=== PATIENT | male | born 1950 | race Caucasian/White ===

== ENCOUNTER 2017-04-22 17:32 | Inpatient (IN) | payer MEDICARE ==
[~2017-04-22] VITALS: Ht 182.9 cm; Wt 108.9 kg
[2017-04-22 18:14] VITALS: BP 151/76; PULSE 122; RESP 16; TEMP 102; O2SAT 96
[2017-04-22] MEDS ORDERED: SODIUM CHLOR 0.9% 1000 ML INJ 300 ML IV ONE (18:46)
[2017-04-22] MEDS ORDERED: SODIUM CHLOR 0.9% 1000 ML INJ 1,000 ML IV ONE ×3 (18:46)
[2017-04-22 19:00] VITALS: RESP 18; O2SAT 97
[2017-04-22] MEDS ORDERED: ACETAMINOPHEN 325 MG TAB PO ONE (19:00)
[2017-04-22] MEDS ORDERED: ASPI81CH CHEW (19:12)
[2017-04-22] MEDS ORDERED: BENA20TA PO (19:12)
[2017-04-22] MEDS ORDERED: LIPI20TA PO (19:12)
--- NOTE | 2017-04-22 19:13 | PD ---
HPI Chief Complaint: Fever Time Seen by Provider: 19:03 Travel History International Travel<30 days: No Contact w/Intl Traveler<30days: No Traveled to known affect area: No History of Present Illness HPI 67-year-old male here for evaluation of fevers, chills, generalized malaise, weakness, headache, and dysuria. Symptoms started 2 days ago with dysuria and suprapubic pressure. He was seen by an urgent care facility yesterday and was diagnosed with a UTI and started on Bactrim. His suprapubic and lower abdominal pressure has resolved. At one episode of loose bowel movements 2 days ago. He feels nauseous but has not vomited. He is describing head pressure that lasted for about 16 hours yesterday and finally resolved after taking Motrin 800 mg every 6 hours, however has returned today. No neck stiffness. He has had a nonproductive cough. He is sexually active with one partner for over 20 years. [facility] Social History Tobacco Use: No Allergies-Medications (Allergen,Severity, Reaction): Coded Allergies: No Known Allergies (Unverified , 04/22/17) Reported Meds & Prescriptions Reported Meds & Active Scripts Active Reported Aspirin 81 Mg Chew 81 Mg CHEW DAILY Lipitor (Atorvastatin Calcium) 20 Mg Tab 20 Mg PO HS Benazepril (Benazepril HCl) 20 Mg Tab 20 Mg PO BID Review of Systems Except as stated in HPI: all other systems reviewed are Neg Physical Exam Narrative GENERAL: Well-developed, well-nourished, comfortable, no apparent distress. SKIN: Focused skin assessment warm/dry. No petechiae. No rash. HEAD: Atraumatic. Normocephalic. EYES: Pupils equal and round. No scleral icterus. No injection or drainage. ENT: No nasal bleeding or discharge. Mucous membranes pink and moist. Normal pharynx. Bilateral tympanic membrane and external auditory canals are normal. NECK: Trachea midline. No JVD. No nuchal rigidity. CARDIOVASCULAR: Tachycardic, rate 115, regular. No murmur appreciated. RESPIRATORY: No accessory muscle use. Clear to auscultation. Breath sounds equal bilaterally. GASTROINTESTINAL: Abdomen soft, non-tender, nondistended. MUSCULOSKELETAL: No obvious deformities. No clubbing. No cyanosis. No edema. NEUROLOGICAL: Awake and alert. No obvious cranial nerve deficits. Motor grossly within normal limits. Normal speech. PSYCHIATRIC: Appropriate mood and affect; insight and judgment normal. Data Data Last Documented VS Vital Signs Date Time Temp Pulse Resp B/P (MAP) Pulse Ox O2 Delivery O2 Flow Rate FiO2 04/22/17 21:43 100 16 124/68 (86) 97 Room Air 04/22/17 18:14 102.0 Orders Orders Complete Blood Count With Diff (04/22/17 18:46) Comprehensive Metabolic Panel (04/22/17 18:46) Lactic Acid Sepsis Protocol (04/22/17 18:46) Urinalysis - C+S If Indicated (04/22/17 18:46) Influenzae A/B Antigen (04/22/17 18:46) Blood Culture (04/22/17 18:46) Chest, Single Ap (04/22/17 18:46) Ecg Monitoring (04/22/17 18:46) Iv Access Insert/Monitor (04/22/17 18:46) Oximetry (04/22/17 18:46) Acetaminophen (Tylenol) (04/22/17 19:00) Sodium Chlor 0.9% 1000 Ml Inj (Ns 1000 M (04/22/17 18:46) Sodium Chlor 0.9% 1000 Ml Inj (Ns 1000 M (04/22/17 18:46) Sodium Chlor 0.9% 1000 Ml Inj (Ns 1000 M (04/22/17 18:46) Sodium Chlor 0.9% 1000 Ml Inj (Ns 1000 M (04/22/17 18:46) Urine Culture (04/22/17 19:20) Ct Abd/Pel W Iv Contrast(Rout) (04/22/17 20:46) Ketorolac Inj (Toradol Inj) (04/22/17 21:00) Metoclopramide Inj (Reglan Inj) (04/22/17 21:00) Ceftriaxone Inj (Rocephin Inj) (04/22/17 21:00) Iohexol 350 Inj (Omnipaque 350 Inj) (04/22/17 21:33) Diphenhydramine Inj (Benadryl Inj) (04/22/17 22:00) Vital Signs (Adult) Q4H (04/22/17 22:14) Activity Oob With Assistance (04/22/17 22:14) [employer] Concierge / Telemetry .CONTINUOUS (04/22/17 22:14) Diet Heart Healthy (04/23/17 Breakfast) Sodium Chloride 0.9% Flush (Ns Flush) (04/22/17 22:15) Sodium Chloride 0.9% Flush (Ns Flush) (04/23/17 09:00) Basic Metabolic Panel (Bmp) (04/23/17 06:00) Complete Blood Count With Diff (04/23/17 06:00) Case Management Consult (04/22/17 22:14) Naloxone Inj (Narcan Inj) (04/22/17 22:15) Admit To Inpatient (04/22/17 ) Inpatient Certification (04/22/17 ) Ceftriaxone Inj (Rocephin Inj) (04/23/17 09:00) Admit Order (Ed Use Only) (04/22/17 22:16) Labs Laboratory Tests Test 04/22/17 19:20 04/22/17 19:30 Urine Color SOLITARIO Urine Turbidity SLIGHT Urine pH 5.5 Urine Specific [place] 1.016 Urine Protein 100 mg/dL Urine Glucose (UA) NEG mg/dL Urine Ketones NEG mg/dL Urine Occult Blood MOD Urine Nitrite POS Urine Bilirubin NEG Urine Leukocyte Esterase SMALL Urine RBC 4-9 /hpf Urine WBC 50-99 /hpf Urine WBC Clumps FEW Urine Squamous Epithelial Cells 0-5 /hpf Urine Bacteria OCC /hpf Urine Mucus MOD /lpf Microscopic Urinalysis Comment CULTURE INDICATED White Blood Count 6.8 TH/MM3 Red Blood Count 4.91 MIL/MM3 Hemoglobin 15.1 GM/DL Hematocrit 44.6 % Mean Corpuscular Volume 90.9 FL Mean Corpuscular Hemoglobin 30.7 PG Mean Corpuscular Hemoglobin Concent 33.8 % Red Cell Distribution Width 13.0 % Platelet Count 162 TH/MM3 Mean Platelet Volume 8.5 FL Neutrophils (%) (Auto) 84.0 % Lymphocytes (%) (Auto) 7.3 % Monocytes (%) (Auto) 8.0 % Eosinophils (%) (Auto) 0.2 % Basophils (%) (Auto) 0.5 % Neutrophils # (Auto) 5.8 TH/MM3 Lymphocytes # (Auto) 0.5 TH/MM3 Monocytes # (Auto) 0.5 TH/MM3 Eosinophils # (Auto) 0.0 TH/MM3 Basophils # (Auto) 0.0 TH/MM3 CBC Comment DIFF FINAL Differential Comment Blood Urea Nitrogen 11 MG/DL Creatinine 1.10 MG/DL Random Glucose 132 MG/DL Total Protein 7.8 GM/DL Albumin 3.3 GM/DL Calcium Level 9.0 MG/DL Alkaline Phosphatase 86 U/L Aspartate Amino Transf (AST/SGOT) 26 U/L Alanine Aminotransferase (ALT/SGPT) 37 U/L Total Bilirubin 0.8 MG/DL Sodium Level 134 MEQ/L Potassium Level 3.9 MEQ/L Chloride Level 100 MEQ/L Carbon Dioxide Level 26.1 MEQ/L Anion Gap 8 MEQ/L Estimat Glomerular Filtration Rate 66 ML/MIN Lactic Acid Level 1.5 mmol/L [facility] Medical Decision Making Medical Screen Exam Complete: Yes Emergency Medical Condition: Yes Differential Diagnosis Sepsis, UTI, prostatitis, influenza/viral illness, sinusitis, pneumonia, colitis , diverticulitis Narrative Course Initial vital signs show heart rate 122, blood pressure 151/76, pulse ox 96% on room air, oral temp of 32F. CBC: WBC 6.8, hemoglobin 15.1, hematocrit 44.6, platelets 162, neutrophils 84%. CMP is essentially unremarkable. Lactic acid is 1.5. Influenza is negative. UA: Solitario, 100 protein, moderate occult blood, positive nitrites, small leukocyte esterase, 4-9 RBCs, 50-99 wbc's, few wbc clumps, occasional bacteria, moderate mucus. Patient is sexually active with only one partner for the last 20 years. Prostate exam was performed and reveals a boggy/enlarged prostate that is mildly tender. CT abdomen pelvis: Mildly enlarged prostate. No acute findings. Patient likely has prostatitis. He was given 3 L of normal saline IV, oral Tylenol, and his heart rate still remains elevated at around 105 bpm, sinus tachycardia. He still feels very weak and is still complaining of pressure- like headache. He was given a dose of IV Toradol and IV Reglan for this, and after the Reglan he began to feel somewhat jittery, so he was given a dose of Benadryl. There is no nuchal rigidity on exam. I do not believe his headache is from meningitis or encephalitis. Patient meets SIRS criteria. He was given a dose of IV Rocephin. He overall looks ill, and I would like to admit him to the hospital for overnight observation for further antibiotic and fluid hydration therapy. Case discussed with hospitalist Dr. Chun who will admit the patient to her service. Diagnosis Primary Impression: Prostatitis Qualified Codes: N41.0 - Acute prostatitis Additional Impression: SIRS (systemic inflammatory response syndrome) Admitting Information Admitting Physician Requests: Steven Levy MD Apr 22, 2017 19:13
--- NOTE | 2017-04-22 19:18 | RADRPT ---
EXAM DATE/TIME: 04/22/2017 18:54 [facility] COMPARISON: No previous studies available for comparison. INDICATIONS : Fever, cough. MEDICAL HISTORY : None. SURGICAL HISTORY : None. ENCOUNTER: Initial ACUITY: 3 days PAIN SCORE: 0/10 LOCATION: Bilateral chest FINDINGS: A single view of the chest demonstrates the lungs to be symmetrically aerated without evidence of mas s, infiltrate or effusion. The cardiomediastinal contours are unremarkable. Osseous structures are intact. CONCLUSION: No acute disease. Alex Renteria MD on April 22, 2017 at 19:16 Board Certified Radiologist. This report was verified electronically.
[2017-04-22 19:50] LABS: AUTOMATED NEUTROPHIL # 5.8 TH/MM3 (1.8-7.7); BASOPHIL % 0.5 % (0.0-2.0); EOSINOPHIL % 0.2 % (0.0-4.0); HEMATOCRIT 44.6 % (39.0-51.0); HEMOGLOBIN 15.1 GM/DL (13.0-17.0); LYMPH % 7.3 % (9.0-44.0); LYMPHOCYTE # 0.5 TH/MM3 (1.0-4.8); MEAN CELL VOLUME 90.9 FL (80.0-100.0); MEAN CORPUSCULAR HEMOGLOBIN 30.7 PG (27.0-34.0); MEAN CORPUSCULAR HGB CONC 33.8 % (32.0-36.0); MEAN PLATELET VOLUME 8.5 FL (7.0-11.0); MONOCYTE # 0.5 TH/MM3 (0-0.9); PLATELET COUNT 162 TH/MM3 (150-450); RED BLOOD COUNT 4.91 MIL/MM3 (4.50-5.90); WHITE BLOOD COUNT 6.8 TH/MM3 (4.0-11.0)
[2017-04-22 19:52] LABS: BILIRUBIN, URINE NEG (NEG); BLOOD, URINE MOD (NEG); GLUCOSE,URINE NEG (NEG); KETONE, URINE NEG (NEG); NITRITE,URINE POS (NEG); PH, URINE 5.5 (5.0-8.5); URINE LEUKOCYTE ESTERASE SMALL (NEG)
[2017-04-22 19:57] VITALS: BP 147/85; PULSE 104; RESP 16; O2SAT 97
[2017-04-22 19:58] LABS: CHLORIDE 100 MEQ/L (98-107); SODIUM (NA) 134 MEQ/L (136-145)
[2017-04-22 20:01] LABS: ALBUMIN 3.3 GM/DL (3.4-5.0); BICARBONATE 26.1 MEQ/L (21.0-32.0); BLOOD UREA NITROGEN 11 MG/DL (7-18); GLUCOSE,RANDOM 132 MG/DL (74-106)
[2017-04-22 20:04] LABS: ALT (GPT) 37 U/L (12-78)
[2017-04-22 20:05] LABS: AST (GOT) 26 U/L (15-37); GLOMERULAR FILTRATION RATE 66 ML/MIN (>89)
[2017-04-22 20:06] LABS: TOTAL BILIRUBIN ADULT 0.8 MG/DL (0.2-1.0); TOTAL PROTEIN 7.8 GM/DL (6.4-8.2)
[2017-04-22 20:07] LABS: ALKALINE PHOSPHATASE 86 U/L (45-117)
[2017-04-22 20:14] LABS: URINE COLOR AMBER (YELLW/STRAW)
[2017-04-22 20:15] LABS: MUCUS URINE MOD /lpf (OCC); SQUAMOUS EPITHELIAL CELL URINE 0-5 /hpf (0-5); WHITE BLOOD CELL CLUMPS FEW
[2017-04-22 20:16] LABS: BACTERIA, URINE OCC /hpf
[2017-04-22] MEDS ORDERED: cefTRIAXone INJ 1,000 MG in SODIUM CHLORIDE 0.9% INJ 100 ML IV ONE (21:00)
[2017-04-22] MEDS ORDERED: METOCLOPRAMIDE HCL 10 MG/2 ML VIAL IV PUSH ONE (21:00)
[2017-04-22] MEDS ORDERED: KETOROLAC TROMETHAMINE 30 MG/ML (IVP) VIAL IV PUSH ONE (21:00)
[2017-04-22] MEDS ORDERED: IOHEXOL 350 MG/ML 10 ML VIAL (for RAD DIAG) IVCONTRAST ONE (21:33)
[2017-04-22 21:43] VITALS: BP 124/68; PULSE 100; RESP 16; O2SAT 97
--- NOTE | 2017-04-22 21:50 | RADRPT ---
EXAM DATE/TIME: 04/22/2017 21:09 [facility] COMPARISON: No previous studies available for comparison. INDICATIONS : Suprapubic pain. IV CONTRAST: 100 cc Omnipaque 350 (iohexol) IV ORAL CONTRAST: No oral contrast ingested. RADIATION DOSE: 21.39 CTDIvol (mGy) MEDICAL HISTORY : Hypertension. SURGICAL HISTORY : Appendectomy. ENCOUNTER: Initial ACUITY: 2 days PAIN SCALE: 7/10 LOCATION: Bilateral lower quadrant TECHNIQUE: Volumetric scanning of the abdomen and pelvis was performed. Using automated exposure control and ad justment of the mA and/or kV according to patient size, radiation dose was kept as low as reasonably achievable to obtain optimal diagnostic quality images. DICOM format image data is available electro nically for review and comparison. FINDINGS: LOWER LUNGS: The visualized lower lungs are clear. LIVER: Homogeneous density without lesion. There is no dilation of the biliary tree. No calcified gallston es. SPLEEN: Normal size without lesion. PANCREAS: Within normal limits. KIDNEYS: Normal in size and shape. There is no mass, stone or hydronephrosis. ADRENAL GLANDS: Within normal limits. VASCULAR: There is no aortic aneurysm. BOWEL/MESENTERY: The stomach, small bowel, and colon demonstrate no acute abnormality. There is no free intraperitone al air or fluid. ABDOMINAL WALL: Within normal limits. RETROPERITONEUM: There is no lymphadenopathy. BLADDER: No wall thickening or mass. REPRODUCTIVE: Mildly enlarged prostate INGUINAL: There is no lymphadenopathy or hernia. MUSCULOSKELETAL: Within normal limits for patient age. CONCLUSION: No acute findings Alex Renteria MD on April 22, 2017 at 21:43 Board Certified Radiologist. This report was verified electronically.
[2017-04-22] MEDS ORDERED: diphenhydrAMINE HCL 50 MG/ML VIAL IV PUSH ONE (22:00)
[2017-04-22] MEDS ORDERED: NALOXONE HCL 0.4 MG/ML AMP IV PUSH PRN (22:15)
[2017-04-22] MEDS ORDERED: SODIUM CHLORIDE 0.9% FLUSH 10 ML FLUSH IV FLUSH PRN (22:15)
[2017-04-22 23:30] VITALS: BP 117/59; PULSE 85; RESP 16; TEMP 99; O2SAT 97
[2017-04-23 05:56] VITALS: TEMP 104.3
[2017-04-23 06:36] LABS: AUTOMATED NEUTROPHIL # 4.1 TH/MM3 (1.8-7.7); BASOPHIL % 0.5 % (0.0-2.0); EOSINOPHIL % 0.3 % (0.0-4.0); HEMATOCRIT 41.9 % (39.0-51.0); LYMPHOCYTE # 0.5 TH/MM3 (1.0-4.8); MEAN CELL VOLUME 89.8 FL (80.0-100.0); MEAN CORPUSCULAR HGB CONC 33.3 % (32.0-36.0); MEAN PLATELET VOLUME 8.7 FL (7.0-11.0); MONOCYTE # 0.5 TH/MM3 (0-0.9); NEUT % 79.2 % (16.0-70.0); PLATELET COUNT 153 TH/MM3 (150-450); RED BLOOD COUNT 4.66 MIL/MM3 (4.50-5.90); RED CELL DISTRIBUTION WIDTH 12.6 % (11.6-17.2); WHITE BLOOD COUNT 5.1 TH/MM3 (4.0-11.0)
[2017-04-23] MEDS: ACETAMINOPHEN 325 MG TAB PO PRN ×2 (06:44→17:54)
[2017-04-23 07:39] LABS: BICARBONATE 22.8 MEQ/L (21.0-32.0); CALCIUM 8.8 MG/DL (8.5-10.1); CREATININE 0.98 MG/DL (0.60-1.30)
[2017-04-23 08:00] VITALS: BP 110/62; PULSE 95; RESP 18; TEMP 100.6; O2SAT 96
[2017-04-23] MEDS ORDERED: cefTRIAXone INJ 1,000 MG in SODIUM CHLORIDE 0.9% INJ 100 ML IV SCH (09:00)
[2017-04-23] MEDS: SODIUM CHLORIDE 0.9% FLUSH 10 ML FLUSH IV FLUSH SCH ×2 (09:12→20:51)
--- NOTE | 2017-04-23 11:54 | HHI.HP ---
[facility] Non-Staff Admission Diagnosis Prostatitis, SIRS Diagnoses: (1) SIRS (systemic inflammatory response syndrome) Diagnosis: Secondary (2) UTI (urinary tract infection) Diagnosis: Principal Chief Complaint: Severe lower abdominal pain, fever Travel History International Travel<30 Days: No Contact w/Intl Traveler <30 Da: No Traveled to Known Affected Are: No Sepsis Criteria SIRS Criteria (2 or more): Temp > 100.9 or < 96.8, Heart rate over 90 Sepsis Criteria (SIRS+source): Infect source susp/known Criteria Outcome: Meets sepsis criteria History of Present Illness Written by Nusrat Irving, acting as scribe for Dr. Anderson on 04/23/17 at 11: 45. Mr. Loyd is a 67-year-old male patient with a known medical history of hypertension, hyperlipidemia and history of kidney stone who presented to the ED with complaints of severe abdominal pain. He states that around 0100 on Saturday morning he was awoken out of his sleep with severe lower abdominal pain and complaint of 10-11 bouts of loose stool that morning. Denies any diarrhea. Denies any mucus or hematochezia in stool. Patient also does complain of a headache during that time which lasted roughly 15 hours. Denies any history of migraines, denies any blurry vision. Did take ibuprofen which helped relieve the headache. He states he stayed in bed most of the day Saturday and continued to feel worse with increasing fevers and went to the urgent care given Bactrim and Pyridium. He says the Pyridium turned his urine to an orange color. Does admit to dysuria. Fevers and symptoms continued which eventually led him to the ED. Review of Systems Constitutional: DENIES: Fever, Chills Endocrine: COMPLAINS OF: Heat/cold intolerance Eyes: DENIES: Blurred vision, Eye pain Respiratory: DENIES: Cough, Shortness of breath Cardiovascular: DENIES: Chest pain, Palpitations Gastrointestinal: COMPLAINS OF: Abdominal pain, Diarrhea, DENIES: Bloody stools , Nausea, Vomiting Genitourinary: COMPLAINS OF: Dysuria Integumentary: DENIES: Rash Except as stated in HPI: all other systems reviewed are Neg Past Family Social History Past Medical History History of kidney stone Hyperlipidemia Hypertension Alcohol use. Past Surgical History Tonsillectomy Appendectomy Bilateral cataracts Right ulnar/radius repair. Reported Medications Reported Meds & Active Scripts Active Reported Aspirin 81 Mg Chew 81 Mg CHEW DAILY Lipitor (Atorvastatin Calcium) 20 Mg Tab 20 Mg PO HS Benazepril (Benazepril HCl) 20 Mg Tab 20 Mg PO BID Allergies: Coded Allergies: No Known Allergies (Unverified , 04/22/17) Active Ordered Medications Current Medications Medications (Trade) Dose Ordered Sig/Glory Route Start Time Stop Time Status Last Admin (NS Flush) 2 ml UNSCH PRN IV FLUSH 04/22/17 22:15 (NS Flush) 2 ml BID IV FLUSH 04/23/17 09:00 04/23/17 09:12 (Narcan Inj) 0.4 mg UNSCH PRN IV PUSH 04/22/17 22:15 Ceftriaxone Sodium 1000 mg/ Sodium Chloride 100 ml @ 200 mls/hr Q12H IV 04/23/17 09:00 04/23/17 09:12 (Tylenol) 650 mg Q4H PRN PO 04/23/17 06:30 04/23/17 06:44 Family History Paternal medical history significant for DM. Maternal medical history significant for kidney stones. Social History Denies any current tobacco use. Admits to drinking 3-4 beers a night with dinner and admits to increased use on weekends. Denies any illicit drug use. Physical Exam Vital Signs Vital Signs Date Time Temp Pulse Resp B/P (MAP) Pulse Ox O2 Delivery O2 Flow Rate FiO2 04/23/17 08:00 100.6 95 18 110/62 (78) 96 04/23/17 05:56 104.3 04/22/17 23:32 85 16 96 04/22/17 23:30 99.0 85 16 117/59 (78) 97 Room Air 04/22/17 21:43 100 16 124/68 (86) 97 Room Air 04/22/17 19:57 104 16 147/85 (105) 97 Room Air 04/22/17 19:00 18 97 Room Air 04/22/17 19:00 118 16 97 Room Air 04/22/17 18:14 102.0 122 16 151/76 (101) 96 Physical Exam GENERAL: This is a well-nourished, well-developed male patient, lying in bed in no apparent distress. SKIN: No rashes, ecchymoses or lesions. Clammy and warm. HEENT: Atraumatic. Normocephalic. No temporal or scalp tenderness. Pupils equal round and reactive. Extraocular motions intact. No scleral icterus. No injection or drainage. Nose without bleeding. Airway patent. NECK: Trachea midline. No JVD. Supple. CARDIOVASCULAR: Sinus tachycardia without murmurs, gallops, or rubs. RESPIRATORY: Clear to auscultation. Breath sounds equal bilaterally. No wheezes , rales, or rhonchi. GASTROINTESTINAL: Abdomen soft, non-tender, nondistended. No palpable masses. No guarding. : No CVA tenderness. MUSCULOSKELETAL: Extremities without clubbing, cyanosis, or edema. No joint tenderness, effusion, or edema noted. NEUROLOGICAL: Awake and alert. Cranial nerves II through XII intact. Motor and sensory grossly within normal limits. Five out of 5 muscle strength in all muscle groups. Normal speech. Laboratory Laboratory Tests Test 04/22/17 19:20 04/22/17 19:30 04/23/17 05:50 Urine Color SOLITARIO Urine Turbidity SLIGHT Urine pH 5.5 Urine Specific [place] 1.016 Urine Protein 100 Urine Glucose (UA) NEG Urine Ketones NEG Urine Occult Blood MOD Urine Nitrite POS Urine Bilirubin NEG Urine Leukocyte Esterase SMALL Urine RBC 4-9 Urine WBC 50-99 Urine WBC Clumps FEW Urine Squamous Epithelial Cells 0-5 Urine Bacteria OCC Urine Mucus MOD Microscopic Urinalysis Comment CULTURE INDICATED White Blood Count 6.8 5.1 Red Blood Count 4.91 4.66 Hemoglobin 15.1 14.0 Hematocrit 44.6 41.9 Mean Corpuscular Volume 90.9 89.8 Mean Corpuscular Hemoglobin 30.7 30.0 Mean Corpuscular Hemoglobin Concent 33.8 33.3 Red Cell Distribution Width 13.0 12.6 Platelet Count 162 153 Mean Platelet Volume 8.5 8.7 Neutrophils (%) (Auto) 84.0 79.2 Lymphocytes (%) (Auto) 7.3 10.0 Monocytes (%) (Auto) 8.0 10.0 Eosinophils (%) (Auto) 0.2 0.3 Basophils (%) (Auto) 0.5 0.5 Neutrophils # (Auto) 5.8 4.1 Lymphocytes # (Auto) 0.5 0.5 Monocytes # (Auto) 0.5 0.5 Eosinophils # (Auto) 0.0 0.0 Basophils # (Auto) 0.0 0.0 CBC Comment DIFF FINAL DIFF FINAL Differential Comment Blood Urea Nitrogen 11 13 Creatinine 1.10 0.98 Random Glucose 132 122 Total Protein 7.8 Albumin 3.3 Calcium Level 9.0 8.8 Alkaline Phosphatase 86 Aspartate Amino Transf (AST/SGOT) 26 Alanine Aminotransferase (ALT/SGPT) 37 Total Bilirubin 0.8 Sodium Level 134 137 Potassium Level 3.9 3.6 Chloride Level 100 106 Carbon Dioxide Level 26.1 22.8 Anion Gap 8 8 Estimat Glomerular Filtration Rate 66 76 Lactic Acid Level 1.5 Date/Time Source Procedure Growth Status 04/22/17 19:35 Blood Peripheral Aerobic Blood Culture - Preliminary NO GROWTH IN 1 DAY Resulted 04/22/17 19:35 Blood Peripheral Anaerobic Blood Culture - Preliminary NO GROWTH IN 1 DAY Resulted 04/22/17 19:25 Nasal Washing Influenza Types A,B Antigen (TRAM) - Final NEGATIVE FOR FLU A AND B ANTIGEN.... Complete 04/22/17 19:20 Urine Clean Catch Urine Culture Pending Received Result Diagram: 04/23/17 0550 04/23/17 0550 Imaging Last Impressions Abdomen/Pelvis CT 04/22/172045 Signed Impressions: Service Date/Time: Saturday, April 22, 2017 21:09 - CONCLUSION: No acute findings Alex Renteria MD Chest X-Ray 04/22/17 1846 Signed Impressions: Service Date/Time: Saturday, April 22, 2017 18:54 - CONCLUSION: No acute disease. MD Prabhu Wheatleyi VTE Risk Assessment Caprini VTE Risk Assessment: Mod/High Risk (score >= 2) Caprini Risk Assessment Model Point Value = 1 Point Value = 2 Point Value = 3 Point Value = 5 Age 41-60 Minor surgery BMI > 25 kg/m2 Swollen legs Varicose veins or History of unexplained or recurrent spontaneous Oral contraceptives or hormone replacement Sepsis (< 1 month) Serious lung disease, including pneumonia (< 1 month) Abnormal pulmonary function Acute myocardial infarction Congestive heart failure (< 1 month) History of inflammatory bowel disease Medical patient at bed rest Age 61-74 Arthroscopic surgery Major open surgery (> 45 min) Laparoscopic surgery (> 45 min) Malignancy Confined to bed (> 72 hours) Immobilizing plaster cast Central venous access Age >= 75 History of VTE Family history of VTE Factor V Leiden Prothrombin [id number] Lupus anticoagulant Anticardiolipin antibodies Elevated serum homocysteine Heparin-induced thrombocytopenia Other congenital or acquired thrombophilia Stroke (< 1 month) Elective arthroplasty Hip, pelvis, or leg fracture Acute spinal cord injury (< 1 month) Prophylaxis Regimen Total Risk Factor Score Risk Level Prophylaxis Regimen 0-1 Low Early ambulation 2 Moderate Order ONE of the following: *Sequential Compression Device (SCD) *Heparin 5000 units SQ BID 3-4 Higher Order ONE of the following medications: *Heparin 5000 units SQ TID *Enoxaparin/Lovenox 40 mg SQ daily (WT < 150 kg, CrCl > 30 mL/min) *Enoxaparin/Lovenox 30 mg SQ daily (WT < 150 kg, CrCl > 10-29 mL/min) *Enoxaparin/Lovenox 30 mg SQ BID (WT < 150 kg, CrCl > 30 mL/min) AND/OR *Sequential Compression Device (SCD) 5 or more Highest Order ONE of the following medications: *Heparin 5000 units SQ TID (Preferred with Epidurals) *Enoxaparin/Lovenox 40 mg SQ daily (WT < 150 kg, CrCl > 30 mL/min) *Enoxaparin/Lovenox 30 mg SQ daily (WT < 150 kg, CrCl > 10-29 mL/min) *Enoxaparin/Lovenox 30 mg SQ BID (WT < 150 kg, CrCl > 30 mL/min) AND *Sequential Compression Device (SCD) Assessment and Plan Assessment and Plan Mr. Loyd is a 67-year-old male patient with a known medical history of hypertension, hyperlipidemia and history of kidney stone who presented to the ED with complaints of severe abdominal pain. Complicated urinary tract infection meets sepsis criteria (tachycardia, febrile illness, complicated UTI, possible prostatitis) Has a history of kidney stones. UA with blood in urine, possible cause of UTI. - UA showing small amount of leukocyte esterase and 50-99 WBCs. Urine culture pending, follow. Will add GC and chlamydia PCR. Follow. - Lactic acid 1.5. Febrile TMAX 104.3. - CBC and BMP reviewed essentially unremarkable. - Blood cultures reviewed NGTD. - CXR reviewed showing no acute disease. Abdomen/pelvis CT reviewed showing mildly enlarged prostate. - Status post 4L NS bolus in ED. Ensure hydration 100 ml/hr. Encourage PO intake. Ceftriaxone IV given in ED. Switched to IV Zosyn. Will await urine culture. Hypertension, chronic and well controlled: Continue home Lisinopril. Monitor BP trend. Hyperlipidemia, chronic: Continue home Atorvastatin. DVT Prophylaxis: SCDs. Physician Certification 2 Midnight Certification Type: Admission for Inpatient Services Order for Inpatient Services The services are ordered in accordance with Medicare regulations or non- Medicare payer requirements, as applicable. In the case of services not specified as inpatient-only, they are appropriately provided as inpatient services in accordance with the 2-midnight benchmark. Estimated LOS (days): 2 2 days is the estimated time the patient will need to remain in the hospital, assuming treatment plan goals are met and no additional complications. Post-Hospital Plan: Home Notes: This note was transcribed by brittney Irving. I, Dr. Will Anderson personally performed the history, physical exam, and medical decision making; and confirmed the accuracy of the information in the transcribed note. Authenticated by Dr. Will Anderson on 04/23/17 at 15:29. Nusrat Irving Apr 23, 2017 11:54 Will Anderson DO Apr 23, 2017 15:29
[2017-04-23 12:00] VITALS: BP 130/80; PULSE 79; RESP 18; TEMP 98.4; O2SAT 95
[2017-04-23] MEDS: SODIUM CHLOR 0.9% 1000 ML INJ 1,000 ML IV SCH ×2 (12:29→22:47)
[2017-04-23] MEDS: PIPERACIL-TAZO 4.5 GM PREMIX 100 ML IV SCH ×2 (14:12→20:51)
[2017-04-23 16:00] VITALS: BP 109/66; PULSE 62; RESP 18; TEMP 101.1; O2SAT 97
[2017-04-23 20:00] VITALS: BP 115/66; PULSE 76; RESP 20; TEMP 99.9; O2SAT 95
[2017-04-23 20:05] VITALS: PULSE 70
[2017-04-23 20:46] LABS: HEMOGLOBIN A1C 5.9 % (4.3-6.0)
[2017-04-23] MEDS: LISINOPRIL 20 MG TAB PO SCH (20:51)
[2017-04-23] MEDS ORDERED: ATORVASTATIN 20 MG TAB PO SCH (21:00)
[2017-04-23] MEDS ORDERED: MELATONIN 5 MG TAB PO ONE (22:00)
[2017-04-24] VITALS: BP 120/76; PULSE 72; RESP 20; TEMP 97.7; O2SAT 95
[2017-04-24] MEDS: PIPERACIL-TAZO 4.5 GM PREMIX 100 ML IV SCH ×3 (02:28→15:29)
[2017-04-24 04:00] VITALS: BP 130/74; PULSE 80; RESP 20; TEMP 99.5; O2SAT 94
[2017-04-24 04:02] VITALS: TEMP 98.6
[2017-04-24 07:42] LABS: BASOPHIL % 0.6 % (0.0-2.0); EOSINOPHIL # 0.2 TH/MM3 (0-0.4); EOSINOPHIL % 3.4 % (0.0-4.0); HEMATOCRIT 38.8 % (39.0-51.0); HEMOGLOBIN 13.1 GM/DL (13.0-17.0); MEAN CELL VOLUME 90.7 FL (80.0-100.0); MEAN CORPUSCULAR HEMOGLOBIN 30.7 PG (27.0-34.0); MEAN CORPUSCULAR HGB CONC 33.9 % (32.0-36.0); MONO % 17.5 % (0.0-8.0); MONOCYTE # 0.9 TH/MM3 (0-0.9); NEUT % 59.5 % (16.0-70.0); PLATELET COUNT 175 TH/MM3 (150-450); RED BLOOD COUNT 4.28 MIL/MM3 (4.50-5.90); RED CELL DISTRIBUTION WIDTH 12.5 % (11.6-17.2); WHITE BLOOD COUNT 5.1 TH/MM3 (4.0-11.0)
[2017-04-24 08:00] VITALS: BP 123/74; PULSE 77; RESP 18; TEMP 99.8; O2SAT 94
[2017-04-24] MEDS: SODIUM CHLORIDE 0.9% FLUSH 10 ML FLUSH IV FLUSH SCH (09:00)
[2017-04-24] MEDS: LISINOPRIL 20 MG TAB PO SCH (09:00)
[2017-04-24] MEDS ORDERED: ASPIRIN 81 MG CHEW TAB CHEW SCH (09:00)
[2017-04-24] MEDS ORDERED: diphenhydrAMINE HCL 2%/ZINC ACETATE 0.1% CREAM 30 APPLIC/30 GM TUBE TOPICAL PRN (11:30)
[2017-04-24] MEDS ORDERED: diphenhydrAMINE HCL 25 MG CAP PO PRN (11:30)
--- NOTE | 2017-04-24 11:30 | HHI.PR ---
Subjective Remarks The patient said he feels better. He still reports feeling sweaty. He believes he has a rash from sweating so much. He requests something for the itching. Family at the bedside. Objective Vitals Vital Signs Date Time Temp Pulse Resp B/P (MAP) Pulse Ox O2 Delivery O2 Flow Rate FiO2 04/24/17 08:00 99.8 77 18 123/74 (90) 94 04/24/17 04:02 98.6 04/24/17 04:00 99.5 80 20 130/74 (92) 94 04/24/17 00:00 97.7 72 20 120/76 (91) 95 04/23/17 20:05 70 04/23/17 20:00 99.9 76 20 115/66 (82) 95 04/23/17 16:00 101.1 62 18 109/66 (80) 97 04/23/17 12:00 98.4 79 18 130/80 (97) 95 I/O 04/23/17 04/23/17 04/23/17 04/24/17 04/24/17 04/24/17 07:00 15:00 23:00 07:00 15:00 23:00 Intake Total 100 ml 1174 ml 720 ml Output Total 2250 ml Balance 100 ml 1174 ml -1530 ml Intake Oral 600 ml 720 ml IV Total 100 ml 574 ml Output Urine Total 2250 ml Result Diagram: 04/24/17 0655 04/23/17 0550 Imaging Last Impressions Abdomen/Pelvis CT 04/22/172045 Signed Impressions: Service Date/Time: Saturday, April 22, 2017 21:09 - CONCLUSION: No acute findings Alex Renteria MD Chest X-Ray 04/22/17 184 Signed Impressions: Service Date/Time: Saturday, April 22, 2017 18:54 - CONCLUSION: No acute disease. Alex Renteria MD Objective Remarks GENERAL: This is a well-nourished, well-developed male patient, lying in bed in no apparent distress. SKIN: No ecchymoses or lesions. Clammy and warm. Small rash on upper right back, HEENT: Atraumatic. Normocephalic. No temporal or scalp tenderness. Pupils equal round and reactive. Extraocular motions intact. No scleral icterus. No injection or drainage. Nose without bleeding. Airway patent. NECK: Trachea midline. No JVD. Supple. CARDIOVASCULAR: Regular rate and rhythm without murmurs, gallops, or rubs. RESPIRATORY: Clear to auscultation. Breath sounds equal bilaterally. No wheezes , rales, or rhonchi. GASTROINTESTINAL: Abdomen soft, non-tender, nondistended. No palpable masses. No guarding. : No CVA tenderness. MUSCULOSKELETAL: Extremities without clubbing, cyanosis, or edema. No joint tenderness, effusion, or edema noted. NEUROLOGICAL: Awake and alert. Cranial nerves II through XII intact. Motor and sensory grossly within normal limits. Five out of 5 muscle strength in all muscle groups. Normal speech. PSYCH: Mood and affect appropriate. Medications and IVs Current Medications Medications (Trade) Dose Ordered Sig/Glory Route Start Time Stop Time Status Last Admin (NS Flush) 2 ml UNSCH PRN IV FLUSH 04/22/17 22:15 (NS Flush) 2 ml BID IV FLUSH 04/23/17 09:00 04/23/17 09:12 (Narcan Inj) 0.4 mg UNSCH PRN IV PUSH 04/22/17 22:15 (Tylenol) 650 mg Q4H PRN PO 04/23/17 06:30 04/23/17 17:54 Piperacillin Sod/ Tazobactam Sod 100 ml @ 200 mls/hr Q6H IV 04/23/17 14:00 04/24/17 09:03 (Aspirin Chew) 81 mg DAILY CHEW 04/24/17 09:00 04/24/17 09:03 (Lipitor) 20 mg HS PO 04/23/17 21:00 04/23/17 20:52 (Prinivil) 20 mg BID PO 04/23/17 21:00 A/P Problem List: (1) SIRS (systemic inflammatory response syndrome) ICD Code: R65.10 - Systemic inflammatory response syndrome (SIRS) of non- infectious origin without acute organ dysfunction Status: Acute (2) UTI (urinary tract infection) ICD Code: N39.0 - Urinary tract infection, site not specified Assessment and Plan Mr. Loyd is a 67-year-old male patient with a known medical history of hypertension, hyperlipidemia and history of kidney stone who presented to the ED with complaints of severe abdominal pain. Complicated urinary tract infection meets sepsis criteria (tachycardia, febrile illness, complicated UTI, possible prostatitis) Has a history of kidney stones. UA with blood in urine, possible cause of UTI. - UA showing small amount of leukocyte esterase and 50-99 WBCs. Urine culture pending, follow. Will add GC and chlamydia PCR. Negative. - Lactic acid 1.5. Febrile TMAX 104.3. Improving. - CBC and BMP reviewed essentially unremarkable. - Blood cultures reviewed NGTD. - CXR reviewed showing no acute disease. Abdomen/pelvis CT reviewed showing mildly enlarged prostate. - Status post 4L NS bolus in ED. Ensure hydration 100 ml/hr. Encourage PO intake. - Ceftriaxone IV given in ED. Switched to IV Zosyn. Will await urine culture. Repeat UA requested. Hypertension, chronic and well controlled: Continue home Lisinopril. Monitor BP trend. Hyperlipidemia, chronic: Continue home Atorvastatin. DVT Prophylaxis: SCDs. Discharge Planning Awaiting urine culture results Will Anderson DO Apr 24, 2017 11:30
[2017-04-24 12:00] VITALS: BP 124/76; PULSE 83; RESP 18; TEMP 98.3; O2SAT 96
[2017-04-24] MEDS ORDERED: CIPR500T2 PO (16:56)
--- NOTE | 2017-04-24 16:56 | HHI.DCPOC ---
Discharge Care Plan Diagnosis: (1) Prostatitis (2) UTI (urinary tract infection) Goals to Promote Your Health * To prevent worsening of your condition and complications * To maintain your health at the optimal level Directions to Meet Your Goals Take your medications as prescribed Follow your dietary instruction Follow activity as directed Keep your appointments as scheduled Take your immunizations and boosters as scheduled If your symptoms worsen call your PCP, if no PCP go to Urgent Care Center or Emergency Room Smoking is Dangerous to Your Health. Avoid second hand smoke Call the 24-hour hour crisis hotline for domestic abuse at [place] Apr 24, 2017 16:56
--- NOTE | 2017-04-24 16:56 | HHI.DCPOC ---
Discharge Care Plan Diagnosis: (1) Prostatitis (2) UTI (urinary tract infection) Goals to Promote Your Health * To prevent worsening of your condition and complications * To maintain your health at the optimal level Directions to Meet Your Goals Take your medications as prescribed Follow your dietary instruction Follow activity as directed Keep your appointments as scheduled Take your immunizations and boosters as scheduled If your symptoms worsen call your PCP, if no PCP go to Urgent Care Center or Emergency Room Smoking is Dangerous to Your Health. Avoid second hand smoke Call the 24-hour hour crisis hotline for domestic abuse at [place] Apr 24, 2017 16:56
--- NOTE | 2017-04-24 16:56 | HHI.DCPOC ---
Discharge Care Plan Diagnosis: (1) Prostatitis (2) UTI (urinary tract infection) Goals to Promote Your Health * To prevent worsening of your condition and complications * To maintain your health at the optimal level Directions to Meet Your Goals Take your medications as prescribed Follow your dietary instruction Follow activity as directed Keep your appointments as scheduled Take your immunizations and boosters as scheduled If your symptoms worsen call your PCP, if no PCP go to Urgent Care Center or Emergency Room Smoking is Dangerous to Your Health. Avoid second hand smoke Call the 24-hour hour crisis hotline for domestic abuse at [place] Apr 24, 2017 16:56
== END 2017-04-24 19:02 | disposition home or self-care (01) | DRG 728 ==
LOC: PHED 17:32 → PHEDA 22:18 → PH3A 23:38
PROVIDERS: ADMIT Hospitalist; ATTEND Hospitalist
DX: N41.0 Acute prostatitis (principal); I10 Essential (primary) hypertension; N39.0 Urinary tract infection, site not specified; E78.5 Hyperlipidemia, unspecified; Z87.442 Personal history of urinary calculi; Z79.82 Long term (current) use of aspirin
CPT/HCPCS: 71010; 74177; 80048; 80053; 81001; 83036; 83605; 85025; 87040; 87086; 87491; 87591; 87804; 96360; 96361; J0696; J1200; J1885; J2543; J2765; J7030; Q9967